=== PATIENT | female | born 1990 | race Caucasian/White ===

== ENCOUNTER 2022-06-14 15:27 | Inpatient (IN) | payer BC ==
[~2022-06-14 15:27] MED LIST: Bupivacaine 0.25% HCL 30 ML VIAL ONE; ePHEDrine 50 MG/ML VIAL ONE
[2022-06-14 15:46] VITALS: BMI 26.6
[2022-06-14] MEDS ORDERED: Penicillin G Potassium 5 MILL.UNITS VIAL ONE (16:11)
[2022-06-14] MEDS ORDERED: Fentanyl 2 mcg/Bup 0.1% Cadd 100 ML ONE (16:15)
[2022-06-14] MEDS ORDERED: hydrALAZINE 20 MG/ML VIAL SLOW IVP PRN ×2 (16:20→23:46)
[2022-06-14] MEDS ORDERED: Ondansetron PF 4 MG/2 ML Vial IVP PRN ×3 (16:20→23:46)
[2022-06-14] MEDS ORDERED: Promethazine HCl 25 MG/ML VIAL IM PRN ×3 (16:20→23:46)
[2022-06-14] MEDS ORDERED: Lidocaine 1% (PF) 30 ML VIAL SC PRN (16:20)
[2022-06-14] MEDS ORDERED: Penicillin G Potassium 5 MILL.UNITS in Sodium Chloride 0.9% 100 ML IVPB SCH (16:30)
[2022-06-14] MEDS ORDERED: Lactated Ringer's 1,000 ML IV SCH (16:30)
[2022-06-14 16:39] LABS: Hemoglobin 15.5 g/dL (12.0-15.5); Mean Corpuscular HGB CONC 33.5 g/dL (32.0-36.0); Mean Corpuscular Hemoglobin 31.1 pg (27.0-33.0); Mean Platelet Volume 11.9 fl (7.4-10.4); Platelet Count 303 10x3/uL (150-450); RBC Distribution Width 13.5 % (11.5-14.5); Red Blood Cell (RBC) Count 4.98 10x6/uL (3.90-5.03); White Blood Cell (WBC) Count 18.7 10x3/uL (3.5-10.5)
[2022-06-14] MEDS ORDERED: diphenhydrAMINE 50 MG/ML VIAL IVP PRN (17:11)
[2022-06-14] MEDS ORDERED: Lactated Ringer's 500 ML IV PRN (17:11)
[2022-06-14] MEDS ORDERED: Acetaminophen 325 MG TAB PO PRN (17:11)
[2022-06-14] MEDS ORDERED: Naloxone HCl 0.4 mg/ml Vial IVP PRN ×2 (17:11)
[2022-06-14] MEDS ORDERED: Moisturizing Cream (Eucerin) 113 GM JAR TOP PRN (17:11)
[2022-06-14] MEDS ORDERED: ePHEDrine Sulfate 50 MG/10 ML VIAL SLOW IVP PRN (17:11)
[2022-06-14] MEDS ORDERED: Communication Order-Pharmacy FS SCH (17:15)
[2022-06-14] MEDS ORDERED: Fentanyl 2 mcg/Bupivacaine 0.1% Cassette 100 ML EPIDURAL SCH (17:15)
[2022-06-14 17:19] LABS: HBSAg Index 0.13 S/CO (0-0.99); Hep B Surf Ag - L&D Non-Reactive S/CO (NonReactive)
[2022-06-14 17:21] LABS: Syphilis Antibody Nonreactive (Nonreactive); Syphilis Antibody Index 0.04 S/CO (<1.00 Non-Reactive)
[2022-06-14] MEDS ORDERED: Dexmedetomidine 200 MCG/2 ML VIAL ONE (17:36)
[2022-06-14] MEDS: NS w/ Oxytocin 30 units 500 ML IV SCH ×2 (19:51→20:28)
[2022-06-14 20:12] LABS: pH (Cord, venous) 7.162 (7.250-7.350)
[2022-06-14] MEDS ORDERED: Penicillin G 2.5 MILL.units 2.5 MILL.UNITS in Premix Bag 1 BAG IVPB SCH (20:30)
[2022-06-14] MEDS ORDERED: Benzocaine-Menthol 82.5 ML CAN TOP PRN (23:46)
[2022-06-14] MEDS ORDERED: diphenhydrAMINE 25 MG CAP PO PRN (23:46)
[2022-06-14] MEDS ORDERED: Boostrix 0.5 ML (Tdap) VIAL (>/=7 yrs of age) IM ONE (23:46)
[2022-06-14] MEDS ORDERED: NS w/ Oxytocin 30 units 500 ML IV SCH (23:46)
[2022-06-14] MEDS ORDERED: Milk Of Magnesia 30 ML UDCUP PO PRN (23:46)
[2022-06-14] MEDS ORDERED: Bisacodyl 10 MG SUPP PR PRN (23:46)
[2022-06-14] MEDS ORDERED: Methylergonovine 0.2 MG/ML VIAL IM PRN (23:46)
[2022-06-14] MEDS ORDERED: Misoprostol 200 MCG TAB VAG PRN (23:46)
[2022-06-15] MEDS: Ibuprofen 800 MG TAB PO SCH ×3 (03:29→20:14)
[2022-06-15] MEDS: traMADol HCl 50 MG TAB PO PRN ×2 (05:53→16:38)
[2022-06-15] MEDS ORDERED: Ibuprofen 800 MG TAB PO SCH (06:00)
[2022-06-15] MEDS: Ferrous Sulfate 325 MG TAB PO SCH ×2 (07:26→16:58)
[2022-06-15] MEDS: Docusate 100 MG CAP PO SCH ×2 (08:17→20:15)
[2022-06-15] MEDS: Prenatal Vitamin 1 TAB PO SCH (08:17)
[2022-06-16] MEDS: traMADol HCl 50 MG TAB PO PRN ×2 (02:22→08:01)
[2022-06-16] MEDS: Ibuprofen 800 MG TAB PO SCH ×2 (03:12→11:32)
[2022-06-16] MEDS: Ferrous Sulfate 325 MG TAB PO SCH ×2 (07:50→16:02)
[2022-06-16] MEDS: Docusate 100 MG CAP PO SCH (08:01)
[2022-06-16] MEDS: Prenatal Vitamin 1 TAB PO SCH (08:01)
[2022-06-16 08:36] VITALS: BP 112/75; TEMP 97.7
== END 2022-06-16 17:30 | disposition home or self-care (01) | DRG 807 ==
LOC: CSHLD/OP 15:27 → CSHLD 16:00 → CSHPP 22:45
PROVIDERS: ADMIT Obstetrics & Gynecology; ATTEND Obstetrics & Gynecology
PROC: 10D07Z6 Extraction of Products of Conception, Vacuum, Via Natural or Artificial Opening (ICD-10-PCS; principal; 2022-06-14)
PROC: 0UQMXZZ Repair Vulva, External Approach (ICD-10-PCS; 2022-06-14)
DX: O42.02 Full-term premature rupture of membranes, onset of labor within 24 hours of rupture (principal); Z37.0 Single live birth; Z3A.38 38 weeks gestation of pregnancy; O99.824 Streptococcus B carrier state complicating childbirth; O76 Abnormality in fetal heart rate and rhythm complicating labor and delivery; O71.82 Other specified trauma to perineum and vulva
CPT/HCPCS: 36415; 51702; 82805; 85027; 86780; 86850; 86900; 86901; 87340; 99285; J2540; J2590; J3490; S0020